=== PATIENT | female | born 1970 | race Caucasian/White ===

== ENCOUNTER 2017-07-04 08:00 | Outpatient (CLI) | payer BC | END 2017-07-04 08:01 | disposition home or self-care (01) | LOC: BICMAMMO 08:00 | PROVIDERS: ATTEND Obstetrics & Gynecology | DX: Z12.31 Encounter for screening mammogram for malignant neoplasm of breast (principal); Z80.3 Family history of malignant neoplasm of breast | CPT/HCPCS: 77063; 77067 ==

== ENCOUNTER 2018-03-09 07:57 | Outpatient (CLI) | payer BC ==
--- NOTE | 2018-03-09 11:27 | MRI ---
MRI BRAIN WITH AND WITHOUT CONTRAST: Technique: Multiplanar, multisequence MRI images were obtained of the brain. Post contrast images wer e obtained with administration of 11 cc of MultiHance IV. Indications: Headache. FINDINGS: Ventricles have normal size and position. There are numerous hyperintense foci seen scattered through out the subcortical and deep white matter of both cerebral hemispheres. There is no evidence of restr icted diffusion. No abnormal enhancement identified. Intracranial internal carotid arteries, proximal cerebral arteries, and basilar arteries show flow voids. Dural venous sinuses are patent. Paranasal sinuses and mastoids are clear. There is a CSF signal focus in the base of the brain on the right in the region of the lateral basal ganglia near the external capsule or putamen. This follows CSF signal on all sequences and there is n o evidence of enhancement consistent with a benign cyst. IMPRESSION: There are numerous scattered tiny white matter hyperintensities seen throughout both cerebral hemisph eres. These are abnormal in a patient of this age but are nonspecific. They are not classic for demye linating process. Chronic ischemic white matter changes is a consideration, especially if patient has predisposing factors such as diabetes or hypertension. Infectious and autoimmune etiologies are cons iderations if there are new neurologic findings. Recommend neurologic consultation and suggest follow up MRI brain in 3-6 months to reassess. POS: [facility]
== END 2018-03-09 07:58 | disposition home or self-care (01) ==
LOC: BICMRI 07:57
PROVIDERS: ATTEND Family Medicine
DX: G44.59 Other complicated headache syndrome (principal); G93.89 Other specified disorders of brain
CPT/HCPCS: 70553

== ENCOUNTER 2018-07-12 16:22 | Outpatient (CLI) | payer BC | END 2018-07-12 16:23 | disposition home or self-care (01) | LOC: BICMAMMO 16:22 | PROVIDERS: ATTEND Obstetrics & Gynecology | DX: Z12.31 Encounter for screening mammogram for malignant neoplasm of breast (principal); R92.1 Mammographic calcification found on diagnostic imaging of breast; Z80.3 Family history of malignant neoplasm of breast | CPT/HCPCS: 77063; 77067 ==

== ENCOUNTER 2019-07-16 07:44 | Outpatient (CLI) | payer BC ==
--- NOTE | 2019-07-17 14:39 | MMO ---
Bilateral MAMMO Bilat Screen [facility]. CLINICAL HISTORY: Patient is 48 years old and is seen for screening. The patient has the following family history of breast cancer: mother, malignant (generic) and sister, malignant (generic). The patient has no personal history of cancer. VIEWS: The views performed were: bilateral craniocaudal with tomosynthesis and bilateral mediolateral oblique with tomosynthesis. FILMS COMPARED: The present examination has been compared to prior imaging studies performed at 07/04/2017 and 07/12/2018. This study has been interpreted with the assistance of computer-aided detection. MAMMOGRAM FINDINGS: The breasts are extremely dense, which may lower the sensitivity of mammography. There are stable benign appearing calcifications seen in both breasts. There are no suspicious masses, suspicious calcifications, or new areas of architectural distortion. IMPRESSION: THERE IS NO MAMMOGRAPHIC EVIDENCE OF MALIGNANCY. A ROUTINE FOLLOW-UP MAMMOGRAM IN 1 YEAR IS RECOMMENDED. THE RESULTS OF THIS EXAM WERE SENT TO THE PATIENT. ACR BI-RADS Category 2 - Benign finding MAMMOGRAPHY NOTE: 1. A negative mammogram report should not delay a biopsy if a dominant of clinically suspicious mass is present. 2. Approximately 10% to 15% of breast cancers are not detected by mammography. 3. Adenosis and dense breasts may obscure an underlying neoplasm. Reported by: ALEJANDRA ACUÑA MD Electonically Signed: [id number]
== END 2019-07-16 07:45 | disposition home or self-care (01) ==
LOC: BICMAMMO 07:44
PROVIDERS: ATTEND Obstetrics & Gynecology
DX: Z12.31 Encounter for screening mammogram for malignant neoplasm of breast (principal); Z80.3 Family history of malignant neoplasm of breast
CPT/HCPCS: 77063; 77067

== ENCOUNTER 2020-07-22 07:48 | Outpatient (CLI) | payer BC ==
--- NOTE | 2020-07-22 08:51 | MMO ---
Bilateral MAMMO Bilat Screen [facility]. CLINICAL HISTORY: Patient is 49 years old and is seen for screening. The patient has the following family history of breast cancer: mother, malignant (generic) and sister, malignant (generic). The patient has no personal history of cancer. VIEWS: The views performed were: bilateral craniocaudal with tomosynthesis and bilateral mediolateral oblique with tomosynthesis. FILMS COMPARED: The present examination has been compared to prior imaging studies performed at [facility] on 07/02/2016, 07/04/2017, 07/12/2018 and 07/16/2019. This study has been interpreted with the assistance of computer-aided detection. MAMMOGRAM FINDINGS: The breasts are extremely dense, which may lower the sensitivity of mammography. There are no suspicious masses, suspicious calcifications, or new areas of architectural distortion. IMPRESSION: THERE IS NO MAMMOGRAPHIC EVIDENCE OF MALIGNANCY. A ROUTINE FOLLOW-UP MAMMOGRAM IN 1 YEAR IS RECOMMENDED. THE RESULTS OF THIS EXAM WERE SENT TO THE PATIENT. ACR BI-RADS Category 1 - Negative MAMMOGRAPHY NOTE: 1. A negative mammogram report should not delay a biopsy if a dominant of clinically suspicious mass is present. 2. Approximately 10% to 15% of breast cancers are not detected by mammography. 3. Adenosis and dense breasts may obscure an underlying neoplasm. Reported by: ERICA ALEXANDER MD Electonically Signed: [id number]
== END 2020-07-22 07:49 | disposition home or self-care (01) ==
LOC: BICMAMMO 07:48
PROVIDERS: ATTEND Obstetrics & Gynecology
DX: Z12.31 Encounter for screening mammogram for malignant neoplasm of breast (principal); Z80.3 Family history of malignant neoplasm of breast
CPT/HCPCS: 77063; 77067

== ENCOUNTER 2021-07-28 07:59 | Outpatient (CLI) | payer BC | END 2021-07-28 08:00 | disposition home or self-care (01) | LOC: BICMAMMO 07:59 | PROVIDERS: ATTEND Family Medicine | DX: Z12.31 Encounter for screening mammogram for malignant neoplasm of breast (principal); Z80.3 Family history of malignant neoplasm of breast | CPT/HCPCS: 77063; 77067 ==

== ENCOUNTER 2021-09-22 07:30 | Outpatient (CLI) | payer BC | END 2021-09-22 07:31 | disposition home or self-care (01) | LOC: ULT 07:30 | PROVIDERS: ATTEND Internal Medicine Gastroenterology | DX: K64.9 Unspecified hemorrhoids (principal); K59.00 Constipation, unspecified; R14.0 Abdominal distension (gaseous); Z80.0 Family history of malignant neoplasm of digestive organs | CPT/HCPCS: 76700 ==

== ENCOUNTER 2022-05-10 13:08 | Outpatient (CLI) | payer BC | END 2022-05-10 13:09 | disposition home or self-care (01) | LOC: BICMAMMO 13:08 | PROVIDERS: ATTEND Obstetrics & Gynecology | DX: Z13.820 Encounter for screening for osteoporosis (principal); R79.89 Other specified abnormal findings of blood chemistry; M85.89 Other specified disorders of bone density and structure, multiple sites | CPT/HCPCS: 77080 ==

== ENCOUNTER 2024-06-13 07:42 | Outpatient (CLI) | payer BC ==
[2024-06-13] MEDS ORDERED: Iopamidol 370 76% 100 ML VIAL ONE (09:21)
== END 2024-06-13 07:43 | disposition home or self-care (01) ==
LOC: CT 07:42
PROVIDERS: ATTEND Specialist
DX: I72.8 Aneurysm of other specified arteries (principal)
CPT/HCPCS: 71260; 74160; Q9967